=== PATIENT | female | born 1980 | race Caucasian/White ===

== ENCOUNTER 2017-08-30 20:30 | Emergency (ER) | payer SELFPAY ==
[~2017-08-30] VITALS: Ht 160 cm; Wt 84.4 kg
[~2017-08-30 20:30] MED LIST: AMOXICILLIN500 M1 OR; AMOXICILLIN500 MG OR; CEPHALEXIN500 MG OR; CEPHALEXIN500 MG PO; CIPRO500 MG OR; CIPROFLOXACN500 MG PO; KLONOPIN2 MG OR; LORTAB 5 OR; NO HOME MEDS; NO MEDS; ONDANSETRON4 MG PO; PAXIL20 MG OR; PROTONIX40 MG OR; TAM75CAP PO; ZOFRAN4 MG/TAB PO
[2017-08-30] MEDS ORDERED: LORTAB 5/3255 MG PO (20:56)
[2017-08-30] MEDS ORDERED: SILVADENE1 % EX (20:56)
[2017-08-30 21:20] VITALS: BP 128/86
== END 2017-08-30 21:20 | disposition home or self-care (01) | DRG 935 ==
LOC: ED 20:30
PROC: 2W2EX4Z Dressing of Right Hand using Bandage (ICD-10-PCS; principal; 2017-08-30)
DX: T23.091A Burn of unspecified degree of multiple sites of right wrist and hand, initial encounter (principal); X12.XXXA Contact with other hot fluids, initial encounter; Y93.G3 Activity, cooking and baking; Y92.009 Unspecified place in unspecified non-institutional (private) residence as the place of occurrence of the external cause

== ENCOUNTER 2018-11-24 14:49 | Emergency (ER) | payer MEDICAID ==
[~2018-11-24] VITALS: Ht 160 cm; Wt 85.0 kg
[~2018-11-24 14:49] MED LIST changes: +LORTAB 5/3255 MG PO; +SILVADENE1 % EX
[2018-11-24 15:14] LABS: URINE BILIRUBIN - DIPSTICK NEGATIVE (NEGATIVE); URINE BLOOD DIPSTICK NEGATIVE (NEGATIVE); URINE COLOR YELLOW; URINE GLUCOSE - DIPSTICK NEGATIVE (NEGATIVE); URINE KETONE TRACE mg/dL (NEGATIVE); URINE LEUK ESTERASE NEGATIVE (NEGATIVE); URINE NITRITE - DIPSTICK NEGATIVE (Negative); URINE PROTEIN - DIPSTICK NEGATIVE (NEG-TRACE); URINE SPECIFIC GRAVITY >=1.030; URINE UROBILINOGEN - DIPSTICK 0.2 E.U./dL (0.2)
[2018-11-24 15:28] LABS: HEMATOCRIT 37.9 % (37.0-47.0); HEMOGLOBIN 12.6 g/dl (12.0-16.0); IMMATURE GRANULOCYTES 0.2 % (0.0-5.0); MEAN CELL VOLUME 87.3 fL CALC (80.0-100.0); MEAN CORPUSCULAR HGB CONC 33.2 g/L CALC (32.0-36.0); NEUT# 2.59 thou/uL (2.00-7.15); RED BLOOD COUNT 4.34 mill/uL (4.20-5.60); RED CELL DISTRI WIDTH 14.6 % (11.5-15.5)
[2018-11-24 15:48] LABS: ALBUMIN 4.1 g/dL (3.2-5.0); ALKALINE PHOSPHATASE 90 u/l (38-126); ANION GAP 12 (6-22 (CALC)); BILIRUBIN, TOTAL 0.4 mg/dL (0.0-1.4); BUN 12 mg/dL (7-17); BUN/CREATININE RATIO 16 (12-20 (CALC)); CARBON DIOXIDE 24 mmol/l (22-30); CHLORIDE 108 mmol/l (95-108); CREATININE 0.7 mg/dL (0.5-1.0); GFR > 60 ML/MIN (>=60 (CALC)); GFR FOR AFR.AMER. > 60 ML/MIN (>=60 (CALC)); LIPASE 79 u/l (23-300); SGOT/AST 14 u/l (14-36); SODIUM 140 mmol/l (137-146); TOTAL PROTEIN 7.1 g/dL (6.3-8.2)
[2018-11-24] MEDS ORDERED: ZOFRAN4 M1 PO (17:29)
[2018-11-24 17:34] VITALS: BP 110/65
== END 2018-11-24 17:35 | disposition home or self-care (01) ==
LOC: ED 14:49
PROVIDERS: Family Medicine
DX: K52.9 Noninfective gastroenteritis and colitis, unspecified (principal); R11.0 Nausea; R10.13 Epigastric pain
CPT/HCPCS: Q9967

== ENCOUNTER 2019-06-10 10:32 | Emergency (ER) | payer SELFPAY ==
[~2019-06-10] VITALS: Ht 160 cm; Wt 84.0 kg
[~2019-06-10 10:32] MED LIST changes: +ZOFRAN4 M1 PO
[2019-06-10] MEDS ORDERED: PENICILLN VK500 MG PO (11:44)
[2019-06-10] MEDS ORDERED: TRAMADOL HYDROC50 M1 PO (11:44)
[2019-06-10 11:55] VITALS: BP 121/87
== END 2019-06-10 11:55 | disposition home or self-care (01) | DRG 159 ==
LOC: ED 10:32
DX: K04.7 Periapical abscess without sinus (principal)

== ENCOUNTER 2019-10-29 | Emergency (ER) | payer SELFPAY ==
[~2019-10-29] MED LIST changes: +PENICILLN VK500 MG PO; +TRAMADOL HYDROC50 M1 PO
[2019-10-29] MEDS ORDERED: VOLTAREN - GENE75 MG PO (13:23)
== END 2019-10-29 13:35 | disposition home or self-care (01) | DRG 556 ==
DX: M79.602 Pain in left arm (principal)

== ENCOUNTER 2019-11-16 | Emergency (ER) | payer SELFPAY ==
[~2019-11-16] MED LIST changes: +VOLTAREN - GENE75 MG PO
[2019-11-16 15:02] LABS: HEMATOCRIT 40.7 % (37.0-47.0); IMMATURE GRANULOCYTES 0.4 % (0.0-5.0); MEAN CELL VOLUME 88.1 fL CALC (80.0-100.0); MEAN CORPUSCULAR HGB 28.1 pG CALC (26.0-32.0); MEAN CORPUSCULAR HGB CONC 31.9 g/L CALC (32.0-36.0); NEUT# 7.2 thou/uL (2.00-7.15); RED BLOOD COUNT 4.62 mill/uL (4.20-5.60); RED CELL DISTRI WIDTH 14.5 % (11.5-15.5)
[2019-11-16 15:21] LABS: ALBUMIN 4.8 g/dL (3.2-5.0); ALKALINE PHOSPHATASE 104 u/l (38-126); AMYLASE 38 u/l (30-110); BUN 11 mg/dL (7-17); BUN/CREATININE RATIO 20 (12-20 (CALC)); CHLORIDE 113 mmol/l (95-108); CREATININE 0.5 mg/dL (0.5-1.0); ETHYL ALCOHOL 0 mg/dl (0-30); GFR > 60 ML/MIN (>=60 (CALC)); GFR FOR AFR.AMER. > 60 ML/MIN (>=60 (CALC)); LIPASE 39 u/l (23-300); SGOT/AST 24 u/l (14-36); SODIUM 142 mmol/l (137-146); TOTAL PROTEIN 8.1 g/dL (6.3-8.2)
[2019-11-16 15:22] LABS: ANION GAP 15 (6-22 (CALC)); BILIRUBIN, TOTAL 0.6 mg/dL (0.0-1.4); CARBON DIOXIDE 18 mmol/l (22-30)
[2019-11-16 16:14] LABS: URINE BILIRUBIN - DIPSTICK NEGATIVE (NEGATIVE); URINE BLOOD DIPSTICK NEGATIVE (NEGATIVE); URINE COLOR YELLOW; URINE GLUCOSE - DIPSTICK NEGATIVE (NEGATIVE); URINE KETONE TRACE mg/dL (NEGATIVE); URINE LEUK ESTERASE NEGATIVE (NEGATIVE); URINE NITRITE - DIPSTICK NEGATIVE (Negative); URINE PH 6.5 (4.5-8.0); URINE PROTEIN - DIPSTICK TRACE mg/dL (NEG-TRACE); URINE SPECIFIC GRAVITY 1.025; URINE UROBILINOGEN - DIPSTICK 0.2 E.U./dL (0.2)
[2019-11-16 16:58] LABS: COCAINE NEGATIVE (NEGATIVE); METHADONE NEGATIVE (NEGATIVE); TETRAHYDROCANNABIONOL POSITIVE (NEGATIVE)
[2019-11-16 16:59] LABS: BARBITURATES NEGATIVE (NEGATIVE); OXCYCODONE NEGATIVE (NEGATIVE); TRICYLIC ANTIDEPRESSANTS NEGATIVE (NEGATIVE)
[2019-11-16] MEDS ORDERED: ZOFRAN4 M1 PO (17:04)
== END 2019-11-16 17:23 | disposition home or self-care (01) | DRG 392 ==
DX: R11.2 Nausea with vomiting, unspecified (principal); R19.7 Diarrhea, unspecified
CPT/HCPCS: S0164

== ENCOUNTER 2020-12-30 | Emergency (ER) | payer MEDICAID ==
[2020-12-30 05:55] LABS: HEMATOCRIT 41.5 % (37.0-47.0); HEMOGLOBIN 13.4 g/dl (12.0-16.0); IMMATURE GRANULOCYTES 0.3 % (0.0-5.0); MEAN CELL VOLUME 87.2 fL CALC (80.0-100.0); MEAN CORPUSCULAR HGB 28.2 pG CALC (26.0-32.0); MEAN CORPUSCULAR HGB CONC 32.3 g/dL CAL (32.0-36.0); NEUT# 3.25 thou/uL (2.00-7.15); RED BLOOD COUNT 4.76 mill/uL (4.20-5.60); RED CELL DISTRI WIDTH 14.6 % (11.5-15.5)
[2020-12-30 06:00] LABS: ALBUMIN 4.8 g/dL (3.2-5.0); ALKALINE PHOSPHATASE 96 u/l (38-126); ANION GAP 13 (6-22 (CALC)); BILIRUBIN, TOTAL 0.7 mg/dL (0.0-1.4); BUN 8 mg/dL (7-17); BUN/CREATININE RATIO 12 (12-20 (CALC)); CARBON DIOXIDE 20 mmol/l (22-30); CHLORIDE 109 mmol/l (95-108); CREATININE 0.7 mg/dL (0.5-1.0); GFR > 60 ML/MIN (>=60 (CALC)); GFR FOR AFR.AMER. > 60 ML/MIN (>=60 (CALC)); POTASSIUM 3.8 mmol/l (3.5-5.1); SGOT/AST 25 u/l (14-36); SODIUM 138 mmol/l (137-146); TOTAL PROTEIN 8.3 g/dL (6.3-8.2)
[2020-12-30 06:30] LABS: URINE BILIRUBIN - DIPSTICK NEGATIVE (NEGATIVE); URINE BLOOD DIPSTICK NEGATIVE (NEGATIVE); URINE COLOR YELLOW; URINE GLUCOSE - DIPSTICK NEGATIVE (NEGATIVE); URINE KETONE NEGATIVE (NEGATIVE); URINE LEUK ESTERASE NEGATIVE (NEGATIVE); URINE PH 6.5 (4.5-8.0); URINE PROTEIN - DIPSTICK NEGATIVE (NEG-TRACE); URINE SPECIFIC GRAVITY <=1.005; URINE UROBILINOGEN - DIPSTICK 0.2 E.U./dL (0.2)
[2020-12-30 06:34] LABS: URINE NITRITE - DIPSTICK NEGATIVE (Negative)
[2020-12-30] MEDS ORDERED: PHENERGAN25 MG/TAB PO (06:52)
== END 2020-12-30 07:03 | disposition home or self-care (01) ==
PROVIDERS: Family Medicine
DX: K52.9 Noninfective gastroenteritis and colitis, unspecified (principal); Z20.822 Contact with and (suspected) exposure to COVID-19

== ENCOUNTER 2021-03-14 11:26 | Emergency (ER) | payer MEDICAID ==
[~2021-03-14] VITALS: Ht 160 cm; Wt 73.0 kg
[~2021-03-14 11:26] MED LIST changes: +PHENERGAN25 MG/TAB PO
[2021-03-14 12:22] LABS: HEMATOCRIT 40.7 % (37.0-47.0); HEMOGLOBIN 13.2 g/dl (12.0-16.0); IMMATURE GRANULOCYTES 0.1 % (0.0-5.0); MEAN CELL VOLUME 88.3 fL CALC (80.0-100.0); MEAN CORPUSCULAR HGB 28.6 pG CALC (26.0-32.0); MEAN CORPUSCULAR HGB CONC 32.4 g/dL CAL (32.0-36.0); NEUT# 5.23 thou/uL (2.00-7.15); RED BLOOD COUNT 4.61 mill/uL (4.20-5.60); RED CELL DISTRI WIDTH 13.9 % (11.5-15.5)
[2021-03-14 12:34] LABS: URINE BILIRUBIN - DIPSTICK NEGATIVE (NEGATIVE); URINE BLOOD DIPSTICK SMALL (NEGATIVE); URINE COLOR YELLOW; URINE GLUCOSE - DIPSTICK NEGATIVE (NEGATIVE); URINE KETONE NEGATIVE (NEGATIVE); URINE LEUK ESTERASE NEGATIVE (NEGATIVE); URINE NITRITE - DIPSTICK NEGATIVE (Negative); URINE PROTEIN - DIPSTICK NEGATIVE (NEG-TRACE); URINE SPECIFIC GRAVITY >=1.030; URINE UROBILINOGEN - DIPSTICK 0.2 E.U./dL (0.2)
[2021-03-14 12:39] LABS: ALBUMIN 4.3 g/dL (3.2-5.0); ALKALINE PHOSPHATASE 86 u/l (38-126); ANION GAP 13 (6-22 (CALC)); BUN 8 mg/dL (7-17); BUN/CREATININE RATIO 13 (12-20 (CALC)); CARBON DIOXIDE 23 mmol/l (22-30); CHLORIDE 107 mmol/l (95-108); CREATININE 0.6 mg/dL (0.5-1.0); GFR > 60 ML/MIN (>=60 (CALC)); GFR FOR AFR.AMER. > 60 ML/MIN (>=60 (CALC)); LIPASE 70 u/l (23-300); POTASSIUM 4.2 mmol/l (3.5-5.1); SGOT/AST 15 u/l (14-36); SODIUM 138 mmol/l (137-146); TOTAL PROTEIN 7.6 g/dL (6.3-8.2)
[2021-03-14 12:47] LABS: BILIRUBIN, TOTAL 0.1 mg/dL (0.0-1.4)
[2021-03-14 12:48] LABS: URINE RBC 0-2 RBC/hpf (0-5)
[2021-03-14 14:54] VITALS: BP 116/70
[2021-03-14] MEDS ORDERED: ZOFRAN4 MG/TAB PO (14:54)
== END 2021-03-14 15:09 | disposition home or self-care (01) ==
LOC: ED 11:26
DX: R11.2 Nausea with vomiting, unspecified (principal); R19.7 Diarrhea, unspecified; Z20.822 Contact with and (suspected) exposure to COVID-19

== ENCOUNTER 2021-05-15 09:56 | Emergency (ER) | payer MEDICAID ==
[~2021-05-15] VITALS: Ht 160 cm; Wt 84.0 kg
[2021-05-15] MEDS ORDERED: AMOX/K CLAV875 M1 PO (10:44)
[2021-05-15] MEDS ORDERED: CIPROFLOXACN500 MG PO (10:47)
[2021-05-15] MEDS ORDERED: ANTIBIOT EAR11 AS (10:47)
[2021-05-15] MEDS ORDERED: FLUCONAZOLE150 MG PO (10:48)
[2021-05-15] MEDS ORDERED: HYDROCO/APAP1 TA9 PO (11:04)
[2021-05-15] MEDS ORDERED: CIPRODEX1 ML OS (11:04)
[2021-05-15] MEDS ORDERED: BACTRIM DS1 TAB PO (11:04)
[2021-05-15 11:28] VITALS: BP 120/70
== END 2021-05-15 11:28 | disposition home or self-care (01) ==
LOC: ED 09:56
DX: H60.92 Unspecified otitis externa, left ear (principal); H66.92 Otitis media, unspecified, left ear

== ENCOUNTER 2021-07-22 09:59 | Emergency (ER) | payer MEDICAID ==
[~2021-07-22] VITALS: Ht 160 cm; Wt 83.9 kg
[~2021-07-22 09:59] MED LIST changes: +AMOX/K CLAV875 M1 PO; +ANTIBIOT EAR11 AS; +BACTRIM DS1 TAB PO; +CIPRODEX1 ML OS; +FLUCONAZOLE150 MG PO; +HYDROCO/APAP1 TA9 PO
[2021-07-22] MEDS ORDERED: IBUPROFEN600 MG PO (12:23)
[2021-07-22] MEDS ORDERED: FLEXERIL5 M1 PO (12:23)
[2021-07-22] MEDS ORDERED: DECADRON6 MG PO (12:23)
[2021-07-22 12:51] VITALS: BP 130/72
== END 2021-07-22 13:15 | disposition home or self-care (01) ==
LOC: ED 09:59
DX: M54.6 Pain in thoracic spine (principal); M54.50 Low back pain, unspecified

== ENCOUNTER 2021-09-26 11:03 | Emergency (ER) | payer OTHER ==
[~2021-09-26] VITALS: Ht 160 cm; Wt 88.0 kg
[~2021-09-26 11:03] MED LIST changes: +DECADRON6 MG PO; +FLEXERIL5 M1 PO; +IBUPROFEN600 MG PO
[2021-09-26] MEDS ORDERED: KEFLEX500 MG PO (12:37)
[2021-09-26 12:49] VITALS: BP 108/69
== END 2021-09-26 12:49 | disposition home or self-care (01) ==
LOC: ED 11:03
DX: J06.9 Acute upper respiratory infection, unspecified (principal); F32.A Depression, unspecified; F41.9 Anxiety disorder, unspecified; Z20.822 Contact with and (suspected) exposure to COVID-19

== ENCOUNTER 2021-10-04 15:52 | Emergency (ER) | payer OTHER ==
[~2021-10-04] VITALS: Ht 160 cm; Wt 90.0 kg
[~2021-10-04 15:52] MED LIST changes: +KEFLEX500 MG PO
[2021-10-04 16:41] LABS: HEMATOCRIT 41.3 % (37.0-47.0); HEMOGLOBIN 13.5 g/dl (12.0-16.0); MEAN CELL VOLUME 85.7 fL CALC (80.0-100.0); MEAN CORPUSCULAR HGB CONC 32.7 g/dL CAL (32.0-36.0); NEUT# 2.99 thou/uL (2.00-7.15); RED BLOOD COUNT 4.82 mill/uL (4.20-5.60); RED CELL DISTRI WIDTH 13.9 % (11.5-15.5)
[2021-10-04 17:02] LABS: ALBUMIN 4.7 g/dL (3.2-5.0); ALKALINE PHOSPHATASE 115 u/l (38-126); ANION GAP 14 (6-22 (CALC)); BUN 9 mg/dL (7-17); BUN/CREATININE RATIO 16 (12-20 (CALC)); CARBON DIOXIDE 23 mmol/l (22-30); CHLORIDE 107 mmol/l (95-108); CREATININE 0.6 mg/dL (0.5-1.0); GFR > 60 ML/MIN (>=60 (CALC)); GFR FOR AFR.AMER. > 60 ML/MIN (>=60 (CALC)); POTASSIUM 3.4 mmol/l (3.5-5.1); SODIUM 140 mmol/l (137-146); TOTAL PROTEIN 8.7 g/dL (6.3-8.2)
[2021-10-04 17:06] LABS: BILIRUBIN, TOTAL 0.7 mg/dL (0.0-1.4); SGOT/AST 32 u/l (14-36)
[2021-10-04] MEDS ORDERED: ZOFRAN4 M1 PO (18:56)
[2021-10-04 19:30] VITALS: BP 136/88
== END 2021-10-04 19:30 | disposition home or self-care (01) ==
LOC: ED 15:52
PROVIDERS: Family Medicine
DX: U07.1 COVID-19 (principal); F41.9 Anxiety disorder, unspecified; F32.A Depression, unspecified

== ENCOUNTER 2022-02-16 18:11 | Emergency (ER) | payer OTHER ==
[~2022-02-16] VITALS: Ht 160 cm; Wt 84.1 kg
[2022-02-16 18:27] VITALS: BP 95/46
[2022-02-16 18:31] VITALS: BP 68/29
[2022-02-16 18:35] VITALS: BP 120/79
[2022-02-16 19:01] VITALS: BP 123/81
[2022-02-16 19:40] LABS: IMMATURE GRANULOCYTES 0.2 % (0.0-5.0); MEAN CELL VOLUME 83.6 fL CALC (80.0-100.0); MEAN CORPUSCULAR HGB 26.9 pG CALC (26.0-32.0); MEAN CORPUSCULAR HGB CONC 32.2 g/dL CAL (32.0-36.0); NEUT# 11.44 thou/uL (2.00-7.15); RED BLOOD COUNT 5.24 mill/uL (4.20-5.60); RED CELL DISTRI WIDTH 14.9 % (11.5-15.5)
[2022-02-16 19:43] LABS: HEMATOCRIT 43.8 % (37.0-47.0); HEMOGLOBIN 14.1 g/dl (12.0-16.0)
[2022-02-16 20:06] LABS: ALBUMIN 4.8 g/dL (3.2-5.0); ALKALINE PHOSPHATASE 105 u/l (38-126); AMYLASE 57 u/l (30-110); ANION GAP 16 (6-22 (CALC)); BILIRUBIN, TOTAL 0.7 mg/dL (0.0-1.4); BUN 13 mg/dL (7-17); BUN/CREATININE RATIO 19 (12-20 (CALC)); CARBON DIOXIDE 18 mmol/l (22-30); CHLORIDE 109 mmol/l (95-108); CREATININE 0.7 mg/dL (0.5-1.0); GFR > 60 ML/MIN (>=60 (CALC)); GFR FOR AFR.AMER. > 60 ML/MIN (>=60 (CALC)); LIPASE 27 u/l (23-300); POTASSIUM 4.3 mmol/l (3.5-5.1); SGOT/AST 23 u/l (14-36); SODIUM 139 mmol/l (137-146); TOTAL PROTEIN 8.8 g/dL (6.3-8.2)
[2022-02-16 21:00] VITALS: BP 121/67
[2022-02-16] MEDS ORDERED: PROMETHAZINE HY25 M1 PO (22:23)
[2022-02-16] MEDS ORDERED: CIPROFLOXACN500 MG PO (22:23)
[2022-02-16 22:33] VITALS: BP 121/67
== END 2022-02-16 23:00 | disposition home or self-care (01) ==
LOC: ED 18:11
PROVIDERS: Emergency Medicine
DX: K52.9 Noninfective gastroenteritis and colitis, unspecified (principal); F41.9 Anxiety disorder, unspecified; F32.A Depression, unspecified
CPT/HCPCS: Q9967

== ENCOUNTER 2022-03-01 06:55 | Day surgery (SDC) | payer OTHER ==
[~2022-03-01] VITALS: Ht 160 cm; Wt 86.2 kg
[~2022-03-01 06:55] MED LIST changes: +PROMETHAZINE HY25 M1 PO
[2022-03-01] MEDS ORDERED: ZOLOFT50 MG PO (07:21)
[2022-03-01] MEDS ORDERED: XANAX1 MG PO (07:22)
[2022-03-01] MEDS ORDERED: WELLBUTRIN150 M1 PO (07:23)
[2022-03-01] MEDS ORDERED: FLEXERIL5 M1 PO (07:23)
[2022-03-01] MEDS ORDERED: PROAIR HFA108 MCG/AC (07:50)
[2022-03-01 07:52] LABS: HCG SERUM/URINE (NEG/POS) NEGATIVE (NEGATIVE)
[2022-03-01] MEDS ORDERED: TRILEPTAL150 M1 PO (07:52)
[2022-03-01 10:30] VITALS: BP 129/88
== END 2022-03-01 09:51 | disposition home or self-care (01) ==
LOC: ORM 06:55
DX: M54.16 Radiculopathy, lumbar region (principal); G89.4 Chronic pain syndrome
CPT/HCPCS: J1100; Q9967

== ENCOUNTER 2022-03-31 21:12 | Emergency (ER) | payer OTHER ==
[~2022-03-31] VITALS: Ht 160 cm; Wt 86.0 kg
[~2022-03-31 21:12] MED LIST changes: +PROAIR HFA108 MCG/AC; +TRILEPTAL150 M1 PO; +WELLBUTRIN150 M1 PO; +XANAX1 MG PO; +ZOLOFT50 MG PO
[2022-03-31 21:50] VITALS: BP 128/81
[2022-03-31] MEDS ORDERED: SILVADENE1 % EX (21:57)
[2022-03-31] MEDS ORDERED: VOLTAREN75 MG PO (21:57)
== END 2022-03-31 22:17 | disposition home or self-care (01) ==
LOC: ED 21:12
DX: T23.251A Burn of second degree of right palm, initial encounter (principal); T23.231A Burn of second degree of multiple right fingers (nail), not including thumb, initial encounter; T31.0 Burns involving less than 10% of body surface; F32.A Depression, unspecified; F41.9 Anxiety disorder, unspecified; X15.3XXA Contact with hot saucepan or skillet, initial encounter; Y92.009 Unspecified place in unspecified non-institutional (private) residence as the place of occurrence of the external cause

== ENCOUNTER 2022-05-24 07:08 | Day surgery (SDC) | payer OTHER ==
[~2022-05-24] VITALS: Ht 160 cm; Wt 90.7 kg
[~2022-05-24 07:08] MED LIST changes: +VOLTAREN75 MG PO
[2022-05-24] MEDS ORDERED: TOPIRAMATE50 MG PO (07:29)
[2022-05-24 08:52] VITALS: BP 117/61
[2022-05-26] MEDS ORDERED: DICYCLOMINE HCL10 MG PO (11:33)
[2022-05-26] MEDS ORDERED: DICLOFENAC75 MG PO (11:33)
[2022-05-26] MEDS ORDERED: PREGABALIN100 MG (11:33)
== END 2022-05-24 09:03 | disposition home or self-care (01) ==
LOC: ORM 07:08
PROVIDERS: ATTEND Physical Medicine & Rehabilitation
DX: M53.3 Sacrococcygeal disorders, not elsewhere classified (principal); G89.4 Chronic pain syndrome
CPT/HCPCS: Q9967

== ENCOUNTER 2022-05-26 11:45 | Emergency (ER) | payer OTHER ==
[~2022-05-26] VITALS: Ht 157.5 cm; Wt 91.0 kg
[2022-05-26] VITALS (19 sets, daily range): BP systolic 97–140; BP diastolic 46–87
[~2022-05-26 11:45] MED LIST changes: +DICLOFENAC75 MG PO; +DICYCLOMINE HCL10 MG PO; +PREGABALIN100 MG; +TOPIRAMATE50 MG PO
[2022-05-26 13:08] LABS: ALBUMIN 4.7 g/dL (3.2-5.0); ALKALINE PHOSPHATASE 94 u/l (38-126); AMYLASE 46 u/l (30-110); ANION GAP 13 (6-22 (CALC)); BILIRUBIN, TOTAL 0.5 mg/dL (0.0-1.4); BUN 13 mg/dL (7-17); BUN/CREATININE RATIO 23 (12-20 (CALC)); CARBON DIOXIDE 19 mmol/l (22-30); CHLORIDE 109 mmol/l (95-108); CREATININE 0.6 mg/dL (0.5-1.0); GFR FOR AFR.AMER. > 60 ML/MIN (>=60 (CALC)); GFR OTHER RACES > 60 ML/MIN (>=60 (CALC)); LIPASE 26 u/l (23-300); SGOT/AST 24 u/l (14-36); SODIUM 138 mmol/l (137-146); TOTAL PROTEIN 8.5 g/dL (6.3-8.2)
[2022-05-26 13:10] LABS: HEMATOCRIT 38.4 % (37.0-47.0); HEMOGLOBIN 12.7 g/dl (12.0-16.0); IMMATURE GRANULOCYTES 0.1 % (0.0-5.0); MEAN CELL VOLUME 83.3 fL CALC (80.0-100.0); MEAN CORPUSCULAR HGB 27.5 pG CALC (26.0-32.0); MEAN CORPUSCULAR HGB CONC 33.1 g/dL CAL (32.0-36.0); NEUT# 5.51 thou/uL (2.00-7.15); POTASSIUM 3.3 mmol/l (3.5-5.1); RED BLOOD COUNT 4.61 mill/uL (4.20-5.60); RED CELL DISTRI WIDTH 14.8 % (11.5-15.5)
[2022-05-26 15:10] LABS: URINE BILIRUBIN - DIPSTICK NEGATIVE (NEGATIVE); URINE BLOOD DIPSTICK TRACE-INTACT (NEGATIVE); URINE COLOR YELLOW; URINE GLUCOSE - DIPSTICK NEGATIVE (NEGATIVE); URINE KETONE 40 mg/dL (NEGATIVE); URINE LEUK ESTERASE NEGATIVE (NEGATIVE); URINE NITRITE - DIPSTICK NEGATIVE (Negative); URINE PH 6.5 (4.5-8.0); URINE PROTEIN - DIPSTICK NEGATIVE (NEG-TRACE); URINE SPECIFIC GRAVITY <=1.005; URINE UROBILINOGEN - DIPSTICK 0.2 E.U./dL (0.2)
[2022-05-26] MEDS ORDERED: AMOX/K CLAV875 M1 PO (17:54)
[2022-05-26] MEDS ORDERED: HYDROCO/APAP1 TA9 PO (17:54)
[2022-05-26] MEDS ORDERED: ONDANSETRON4 MG PO (17:54)
[2022-05-26] MEDS ORDERED: PREDNISONE20 MG PO (17:54)
== END 2022-05-26 18:23 | disposition home or self-care (01) ==
LOC: ED 11:45
PROVIDERS: Nurse Practitioner
DX: K50.10 Crohn's disease of large intestine without complications (principal); F41.9 Anxiety disorder, unspecified; F32.A Depression, unspecified; J45.909 Unspecified asthma, uncomplicated
CPT/HCPCS: Q9967

== ENCOUNTER 2022-06-08 09:16 | Day surgery (SDC) | payer OTHER ==
[~2022-06-08] VITALS: Ht 157.5 cm; Wt 90.7 kg
[~2022-06-08 09:16] MED LIST changes: +PREDNISONE20 MG PO
[2022-06-08] MEDS ORDERED: XANAX1 MG PO (10:05)
[2022-06-08 11:57] VITALS: BP 125/74
[2022-06-14] MEDS ORDERED: CLARITHROMYCIN500 MG PO (09:18)
[2022-06-14] MEDS ORDERED: AMOXICILLIN500 M2 PO (09:18)
[2022-06-14] MEDS ORDERED: PRILOSEC20 MG/CAP PO (09:18)
[2022-06-14] MEDS ORDERED: OMEPRAZOLE20 MG PO (12:32)
== END 2022-06-08 12:05 | disposition home or self-care (01) ==
LOC: ENDO 09:16 → ORM 11:45 → ENDO 12:05
PROVIDERS: ATTEND Surgery
DX: K50.10 Crohn's disease of large intestine without complications (principal); K63.5 Polyp of colon; K64.8 Other hemorrhoids; K29.50 Unspecified chronic gastritis without bleeding; B96.81 Helicobacter pylori [H. pylori] as the cause of diseases classified elsewhere; K29.80 Duodenitis without bleeding; K22.70 Barrett's esophagus without dysplasia; K20.90 Esophagitis, unspecified without bleeding; Z80.0 Family history of malignant neoplasm of digestive organs

== ENCOUNTER 2022-06-25 23:44 | Emergency (ER) | payer OTHER ==
[~2022-06-25 23:44] MED LIST changes: +AMOXICILLIN500 M2 PO; +CLARITHROMYCIN500 MG PO; +OMEPRAZOLE20 MG PO; +PRILOSEC20 MG/CAP PO
== END 2022-06-26 00:46 | disposition left against medical advice (07) | DRG 951 ==
LOC: ED 23:44 → LWOBS 06-26 00:21
DX: Z53.21 Procedure and treatment not carried out due to patient leaving prior to being seen by health care provider (principal)

== ENCOUNTER 2022-08-16 09:06 | Day surgery (SDC) | payer OTHER ==
[~2022-08-16] VITALS: Ht 157.5 cm; Wt 86.2 kg
[2022-08-16 11:58] VITALS: BP 121/84
== END 2022-08-16 12:10 | disposition home or self-care (01) ==
LOC: ORM 09:06
PROVIDERS: ATTEND Physical Medicine & Rehabilitation
DX: M70.62 Trochanteric bursitis, left hip (principal)
CPT/HCPCS: Q9967

== ENCOUNTER 2022-09-27 11:16 | Emergency (ER) | payer OTHER ==
[~2022-09-27] VITALS: Ht 157.5 cm; Wt 86.1 kg
[~2022-09-27 11:16] MED LIST changes: +CHOLESTYRAMINE4 G1 PO
[2022-09-27 12:25] VITALS: BP 135/82
[2022-09-27 12:42] LABS: URINE BILIRUBIN - DIPSTICK NEGATIVE (NEGATIVE); URINE BLOOD DIPSTICK LARGE (NEGATIVE); URINE COLOR YELLOW; URINE GLUCOSE - DIPSTICK NEGATIVE (NEGATIVE); URINE KETONE NEGATIVE (NEGATIVE); URINE LEUK ESTERASE NEGATIVE (NEGATIVE); URINE PH 5.5 (4.5-8.0); URINE PROTEIN - DIPSTICK NEGATIVE (NEG-TRACE); URINE SPECIFIC GRAVITY 1.025; URINE UROBILINOGEN - DIPSTICK 0.2 E.U./dL (0.2)
[2022-09-27 12:43] LABS: URINE NITRITE - DIPSTICK NEGATIVE (Negative)
[2022-09-27 12:51] LABS: URINE RBC 0-2 RBC/hpf (0-5); URINE SQUAMOUS EPITHELIAL CELL FEW EPI/hpf (0-FEW)
[2022-09-27 13:10] LABS: BASO% 0.3 % (0-3); EOS% 1.8 % (0-8); HEMATOCRIT 37.9 % (37.0-47.0); HEMOGLOBIN 12.3 g/dl (12.0-16.0); IMMATURE GRANULOCYTES 0.1 % (0.0-5.0); LYMPH% 28.5 % (15-41); MEAN CELL VOLUME 87.9 fL CALC (80.0-100.0); MEAN CORPUSCULAR HGB 28.5 pG CALC (26.0-32.0); MEAN CORPUSCULAR HGB CONC 32.5 g/dL CAL (32.0-36.0); NEUT# 4.68 thou/uL (2.00-7.15); NEUT% 63.3 % (42-76); RED BLOOD COUNT 4.31 mill/uL (4.20-5.60); RED CELL DISTRI WIDTH 15.2 % (11.5-15.5)
[2022-09-27 13:30] LABS: ALBUMIN 4.3 g/dL (3.2-5.0); ALKALINE PHOSPHATASE 72 u/l (38-126); ANION GAP 7 (6-22 (CALC)); BILIRUBIN, TOTAL 0.2 mg/dL (0.0-1.4); BUN 14 mg/dL (7-17); BUN/CREATININE RATIO 20 (12-20 (CALC)); CARBON DIOXIDE 26 mmol/l (22-30); CHLORIDE 110 mmol/l (95-108); CREATININE 0.7 mg/dL (0.5-1.0); GFR FOR AFR.AMER. > 60 ML/MIN (>=60 (CALC)); GFR OTHER RACES > 60 ML/MIN (>=60 (CALC)); POTASSIUM 4.3 mmol/l (3.5-5.1); SGOT/AST 17 u/l (14-36); SODIUM 139 mmol/l (137-146); TOTAL PROTEIN 7.4 g/dL (6.3-8.2)
[2022-09-27 15:50] VITALS: BP 135/82
== END 2022-09-27 15:50 | disposition home or self-care (01) ==
LOC: ED 11:16
PROVIDERS: Family Medicine
DX: N92.0 Excessive and frequent menstruation with regular cycle (principal); F41.9 Anxiety disorder, unspecified; F32.A Depression, unspecified

== ENCOUNTER 2022-10-11 06:39 | Day surgery (SDC) | payer OTHER ==
[~2022-10-11] VITALS: Ht 157.5 cm; Wt 86.2 kg
[2022-10-11 10:11] VITALS: BP 159/83
== END 2022-10-11 08:35 | disposition home or self-care (01) ==
LOC: ORM 06:39
PROVIDERS: ATTEND Physical Medicine & Rehabilitation
DX: M54.18 Radiculopathy, sacral and sacrococcygeal region (principal)
CPT/HCPCS: Q9967

== ENCOUNTER 2022-11-21 09:24 | Emergency (ER) | payer OTHER ==
[~2022-11-21] VITALS: Ht 157.5 cm; Wt 86.0 kg
[2022-11-21] MEDS ORDERED: PAXLOVID PO (11:18)
[2022-11-21 11:39] VITALS: BP 124/78
== END 2022-11-21 12:35 | disposition home or self-care (01) ==
LOC: ED 09:24
DX: U07.1 COVID-19 (principal); R05.9 Cough, unspecified; J02.9 Acute pharyngitis, unspecified; M25.532 Pain in left wrist; F32.A Depression, unspecified; F41.9 Anxiety disorder, unspecified

== ENCOUNTER 2023-03-07 11:39 | Emergency (ER) | payer OTHER ==
[~2023-03-07] VITALS: Ht 157.5 cm; Wt 91.0 kg
[2023-03-07] VITALS (12 sets, daily range): BP systolic 86–155; BP diastolic 45–88
[~2023-03-07 11:39] MED LIST changes: +PAXLOVID PO
[2023-03-07] MEDS ORDERED: ABILIFY10 MG PO (13:26)
== END 2023-03-07 15:12 | disposition home or self-care (01) ==
LOC: ED 11:39
DX: R10.2 Pelvic and perineal pain (principal); M25.551 Pain in right hip; F32.A Depression, unspecified; F41.9 Anxiety disorder, unspecified

== ENCOUNTER 2023-10-06 08:49 | Emergency (ER) | payer SELFPAY ==
[~2023-10-06] VITALS: Ht 157.5 cm; Wt 95.2 kg
[~2023-10-06 08:49] MED LIST changes: +ABILIFY10 MG PO
[2023-10-06] MEDS ORDERED: TYLENOL # 31 TA1 PO (10:06)
[2023-10-06] MEDS ORDERED: AMOX/K CLAV875 M1 PO (10:06)
[2023-10-06 10:26] VITALS: BP 133/85
== END 2023-10-06 10:36 | disposition home or self-care (01) | DRG 159 ==
LOC: ED 08:49
DX: K02.9 Dental caries, unspecified (principal); S02.5XXA Fracture of tooth (traumatic), initial encounter for closed fracture; F41.9 Anxiety disorder, unspecified; F32.A Depression, unspecified; X58.XXXA Exposure to other specified factors, initial encounter

== ENCOUNTER 2023-10-18 20:38 | Emergency (ER) | payer SELFPAY ==
[~2023-10-18] VITALS: Ht 157.5 cm; Wt 90.0 kg
[~2023-10-18 20:38] MED LIST changes: +TYLENOL # 31 TA1 PO
[2023-10-18 21:42] LABS: BASO% 0.2 % (0-3); HEMATOCRIT 40.6 % (37.0-47.0); HEMOGLOBIN 13.1 g/dl (12.0-16.0); IMMATURE GRANULOCYTES 0.1 % (0.0-5.0); MEAN CELL VOLUME 86.4 fL CALC (80.0-100.0); MEAN CORPUSCULAR HGB 27.9 pG CALC (26.0-32.0); MEAN CORPUSCULAR HGB CONC 32.3 g/dL CAL (32.0-36.0); NEUT# 4.55 thou/uL (2.00-7.15); NEUT% 53.7 % (42-76); RED BLOOD COUNT 4.7 mill/uL (4.20-5.60); RED CELL DISTRI WIDTH 13.8 % (11.5-15.5)
[2023-10-18 22:13] LABS: ALBUMIN 4.5 g/dL (3.2-5.0); ALKALINE PHOSPHATASE 80 u/l (38-126); ANION GAP 12 (6-22 (CALC)); BILIRUBIN, TOTAL 0.2 mg/dL (0.02-1.3); BUN 9 mg/dL (7-17); BUN/CREATININE RATIO 15 (12-20 (CALC)); CARBON DIOXIDE 23 mmol/l (22-30); CHLORIDE 110 mmol/l (95-108); CREATININE 0.6 mg/dL (0.5-1.0); GFR FOR AFR.AMER. > 60 ML/MIN (>=60 (CALC)); GFR OTHER RACES > 60 ML/MIN (>=60 (CALC)); SGOT/AST 22 u/l (14-36); SODIUM 141 mmol/l (137-146); TOTAL PROTEIN 7.4 g/dL (6.3-8.2)
[2023-10-18 22:45] VITALS: BP 101/72
[2023-10-19] VITALS (18 sets, daily range): BP systolic 85–122; BP diastolic 45–82
[2023-10-19 01:05] LABS: ETHYL ALCOHOL 0 mg/dl (0-30)
== END 2023-10-19 08:20 | DRG 918 ==
LOC: ED 20:38
PROVIDERS: Family Medicine
DX: T42.4X2A Poisoning by benzodiazepines, intentional self-harm, initial encounter (principal); F32.2 Major depressive disorder, single episode, severe without psychotic features; F41.9 Anxiety disorder, unspecified; Z20.822 Contact with and (suspected) exposure to COVID-19; Z72.0 Tobacco use